=== PATIENT | female | born 1950 | race Caucasian/White ===

== ENCOUNTER 2017-04-09 15:25 | Emergency (ER) | payer BC ==
[2015-08-09 11:08] VITALS: BMI 33.9
[~2017-04-09 15:25] MED LIST: ADVAIR 500/501 DISK INH; AFRIN NASAL SPR15 ML NASAL; IPRAT-ALBUT 0.5-3 ML UPD; LEVAQUIN PREMI750 MG PO; LEVAQUIN500 MG PO; MEDROL DOSE PACK4 MG PO; NORCO 10/325 TA1 TA1 PO; ULTRAM50 MG PO; VALIUM5 MG PO; VENTOLIN HFA18 GM INH
[2017-04-09 16:18] LABS: HEMATOCRIT 42.9 % (36.0-48.0); HEMOGLOBIN 14.2 g/dL (12-16); LYMPHOCYTES 12.8 % (15-50); MCH 28.7 pg (26.0-34.0); MCHC 33.1 g/dL (31.0-37.0); MCV 86.8 fL (80.0-100.0); MEAN PLATELET VOLUME 8.2 fL (7.4-10.4); PLATELET COUNT 304 10x3/uL (130-400); RBC 4.94 10x6/uL (4.00-5.40); RDW 12.7 % (11.5-14.5); WBC 10.6 10x3/uL (4.8-10.8)
[2017-04-09 16:31] LABS: ALBUMIN 3.8 g/dL (3.4-5.0); ALKALINE PHOSPHATASE 57 U/L (46-116); ALT (SGPT) 22 U/L (10-68); CALC OSMOLALITY 274 mosm/kg (275-300); CALCIUM 9.1 mg/dL (8.5-10.1); CARBON DIOXIDE 23.8 mmol/L (21.0-32.0); CHLORIDE - SERUM 101 mmol/L (98-107); CREATININE - SERUM 0.8 mg/dL (0.6-1.3); GLUCOSE 126 mg/dL (74-106); POTASSIUM - SERUM 3.7 mmol/L (3.5-5.1); SODIUM 137 mmol/L (136-145); UREA NITROGEN 11 mg/dL (7-18); eGFR NON AFRICAN AMERICAN 75 mL/min (90-120)
== END 2017-04-09 18:49 | disposition left against medical advice (07) ==
LOC: D.ER 15:25
PROVIDERS: Emergency Medicine
DX: R06.02 Shortness of breath (principal); J44.9 Chronic obstructive pulmonary disease, unspecified

== ENCOUNTER → 2018-07-01 12:46 | Outpatient (CLI) | payer BC ==
[2015-08-09 11:08] VITALS: BMI 33.9
[2018-07-04 14:12] LABS: IMMUNOGLOBULIN E 675 IU/mL (0-100)
== END | disposition home or self-care (01) ==
LOC: D.RT 12:46
PROVIDERS: Internal Medicine Pulmonary Disease
DX: J20.9 Acute bronchitis, unspecified (principal); J44.1 Chronic obstructive pulmonary disease with (acute) exacerbation

== ENCOUNTER → 2019-06-23 11:16 | Outpatient (CLI) | payer BC ==
[2015-08-09 11:08] VITALS: BMI 33.9
== END | disposition home or self-care (01) ==
LOC: D.RAD 11:16
PROVIDERS: ATTEND Internal Medicine Pulmonary Disease
DX: J45.909 Unspecified asthma, uncomplicated (principal)

== ENCOUNTER → 2019-06-24 12:44 | Outpatient (CLI) | payer BC ==
[2015-08-09 11:08] VITALS: BMI 33.9
== END | disposition home or self-care (01) ==
LOC: D.RT 06-22 09:00
PROVIDERS: ATTEND Internal Medicine Pulmonary Disease
DX: J45.909 Unspecified asthma, uncomplicated (principal)

== ENCOUNTER 2020-05-21 09:54 | Inpatient (IN) | payer BC, MEDICARE ==
[~2020-05-21] VITALS: Ht 162.6 cm; Wt 77.1 kg
[2020-05-21] MEDS ORDERED: TESSALON PERLE100 MG PO (10:00)
[2020-05-21] MEDS ORDERED: LISINOPRIL10 MG PO (10:00)
[2020-05-21] MEDS ORDERED: HYDROCODON-ACE1 EA10 (10:00)
[2020-05-21] MEDS ORDERED: SINGULAIR10 MG PO (10:00)
[2020-05-21] MEDS ORDERED: TRELEGY ELLIPT1 EACH (10:01)
[2020-05-21 10:21] LABS: BASOPHILS 0.1 % (0-2); EOSINOPHILS 5.4 % (0-7); HEMATOCRIT 43.2 % (36.0-48.0); IMMATURE GRANULOCYTES 0.1 % (0-5); LYMPHOCYTES 22.8 % (15-50); MCH 29.7 pg (26.0-34.0); MCHC 32.4 g/dL (31.0-37.0); MCV 91.7 fL (80.0-100.0); MEAN PLATELET VOLUME 8.9 fL (7.4-10.4); MONOCYTES 5.3 % (2-11); NEUTROPHILS 66.3 % (40-80); RBC 4.71 10x6/uL (4.00-5.40); RDW 12.9 % (11.5-14.5); WBC 8.3 10x3/uL (4.8-10.8)
[2020-05-21 10:22] LABS: PLATELET COUNT 235 10x3/uL (130-400)
[2020-05-21 10:30] LABS: CALC OSMOLALITY 277 mosm/kg (275-300); CALCIUM 9.4 mg/dL (8.5-10.1); CARBON DIOXIDE 30.1 mmol/L (21.0-32.0); CHLORIDE - SERUM 102 mmol/L (98-107); CREATININE - SERUM 0.8 mg/dL (0.6-1.3); GLUCOSE 132 mg/dL (74-106); POTASSIUM - SERUM 3.9 mmol/L (3.5-5.1); SODIUM 138 mmol/L (136-145); UREA NITROGEN 12 mg/dL (7-18); eGFR NON AFRICAN AMERICAN 75 mL/min (90-120)
[2020-05-21 10:36] LABS: ALBUMIN 3.8 g/dL (3.4-5.0); ALKALINE PHOSPHATASE 69 U/L (30-120); ALT (SGPT) 28 U/L (10-68); BILIRUBIN - TOTAL 0.34 mg/dL (0.2-1.3); PROTEIN - SERUM 8.5 g/dL (6.4-8.2)
[2020-05-21 10:39] LABS: LIPASE 27 U/L (73-393)
[2020-05-21 11:31] LABS: BILIRUBIN NEGATIVE (NEGATIVE); KETONE NEGATIVE (NEGATIVE); NITRITE NEGATIVE (NEGATIVE); UROBILINOGEN NORMAL (NORMAL)
[2020-05-21 11:33] LABS: BACTERIA FEW /hpf (NONE SEEN); EPITHELIAL CELLS 0-5 /hpf (0-5); WHITE CELLS - URINE 0-5 /hpf (0-5)
[2020-05-21 11:45] LABS: CKMB 1.8 U/L (0.0-3.6); CREATINE KINASE 86 UL (21-215)
[2020-05-21 11:46] LABS: TROPONIN-I < 0.017 ng/mL (0.000-0.060)
[2020-05-21 14:08] VITALS: BP 152/80
--- NOTE | 2020-05-21 16:30 | NUR ---
TO ROOM 2220 FROM ER VIA WHEELCHAIR. PATIENT IS WITHOUT DISTRESS.ORIENTATION TO ROOM.CALL LIGHT IN REACH.
[2020-05-21 16:50] VITALS: BP 105/87; BMI 29.2
--- NOTE | 2020-05-21 19:01 | NUR ---
RECEIVED REPORT, ASSUMED CARE, C/O PAIN, BREATHING EVEN UNLABRORED, CALL LIGHT IN REACH, BED LOWEST POSITION, NO S/S OF DISTRESS NOTED, IV PATENT, DR PRITCHETT PAGED CONCERNING PAIN MEDICATION, ORDERED MORPHINE DRYING UNIT FELTING MACHINE OPERATOR
[2020-05-21 23:19] VITALS: BP 153/89
[2020-05-22 03:24] VITALS: BP 136/62
[2020-05-22 06:24] LABS: BASOPHILS 0.2 % (0-2); EOSINOPHILS 4.3 % (0-7); HEMATOCRIT 37.1 % (36.0-48.0); HEMOGLOBIN 11.9 g/dL (12-16); LYMPHOCYTES 32.9 % (15-50); MCH 29.1 pg (26.0-34.0); MCHC 32.1 g/dL (31.0-37.0); MCV 90.7 fL (80.0-100.0); MEAN PLATELET VOLUME 9.2 fL (7.4-10.4); MONOCYTES 6.6 % (2-11); PLATELET COUNT 204 10x3/uL (130-400); RBC 4.09 10x6/uL (4.00-5.40); RDW 12.6 % (11.5-14.5)
[2020-05-22 06:29] LABS: WBC 5.6 10x3/uL (4.8-10.8)
[2020-05-22 06:40] VITALS: BP 141/79
[2020-05-22 06:50] LABS: ALKALINE PHOSPHATASE 53 U/L (30-120); AMYLASE - SERUM 16 U/L (25-115); BILIRUBIN - TOTAL 0.12 mg/dL (0.2-1.3); CARBON DIOXIDE 27.4 mmol/L (21.0-32.0); CHLORIDE - SERUM 106 mmol/L (98-107); CREATININE - SERUM 0.7 mg/dL (0.6-1.3); GLUCOSE 89 mg/dL (74-106); POTASSIUM - SERUM 3.6 mmol/L (3.5-5.1); PROTEIN - SERUM 6.8 g/dL (6.4-8.2); SODIUM 140 mmol/L (136-145); eGFR NON AFRICAN AMERICAN 87 mL/min (90-120)
[2020-05-22 07:07] LABS: ALT (SGPT) 19 U/L (10-68); CALC OSMOLALITY 275 mosm/kg (275-300); LIPASE 16 U/L (73-393); UREA NITROGEN 6 mg/dL (7-18)
--- NOTE | 2020-05-22 08:00 | NUR ---
PATIENT IN BED WITH NO COMPLAINTS OR SIGNS OF DISTRESS. IV INTACT. WAITING FOR PHYSICIAN TO ROUND. WANTS CLEAR LIQUIDS. TOURIST INFORMATION ASSISTANT INTACT. WILL CONTINUE TO MONITOR.
[2020-05-22 09:27] VITALS: BP 138/60
[2020-05-22 09:47] VITALS: BMI 29.2
[2020-05-22 13:50] VITALS: Ht 162.6 cm; Wt 77.1 kg
--- NOTE | 2020-05-22 14:30 | NUR ---
CHANGED PATIENTS IV TO RIGHT WRIST. LEFT AC RED, AND ITCHING. REMOVED WITH CATH TIP INTACT.
--- NOTE | 2020-05-22 16:16 | NUR ---
PATIENT SITTING UP IN BED WITH IV INTACT. FAMILY AT BEDSIDE. CALL LIGHT WITHIN REACH.
[2020-05-22 17:48] VITALS: BP 130/68
[2020-05-22 20:00] VITALS: BP 115/53
--- NOTE | 2020-05-22 20:00 | NUR ---
PT SITTING UP ON SIDE OF BED, AOX4 AND WITHOUT DISTRESS. IV RIGHT WRIST INFUSING NS @ 125. STATES NO NAUSEA AT THIS TIME, WAS ABLE TO EAT SOME JELLO. STATES PAIN IN ABD 5/10 AT THIS TIME. STATES MOTION PICTURE PROJECTIONIST APPRENTICE HELPS. DENIES NEEDS AT THIS TIME. CL IN REACH, WILL CTM
[2020-05-23] VITALS: BP 114/47
--- NOTE | 2020-05-23 01:15 | NUR ---
PT LYING IN BED RESTING WITHOUT DISTRESS, DENIES NEEDS. WILL CTM
[2020-05-23 04:00] VITALS: BP 125/47
[2020-05-23 08:55] VITALS: BP 143/75
[2020-05-23 13:19] VITALS: BP 124/52
[2020-05-23 17:06] VITALS: BP 150/69
[2020-05-23 20:00] VITALS: BP 130/61
--- NOTE | 2020-05-23 20:00 | NUR ---
PT SITTING UP IN BED WITHOUT DISTRESS, AOX4. STATES SHE HAS BEEN NAUSEOUS AND HAS NOT ATE MUCH TODAY. IV RIGHT WRIST INFUSING NS @ 125 AND USING MORPHINE PIANO CASE MAKER. PT DENIES NEEDS AT THIS TIME. CL IN REACH, WILL CTM
--- NOTE | 2020-05-23 22:00 | NUR ---
PT MAKING LAPS AROUND NURSES STATION AT THIS TIME
[2020-05-24] VITALS: BP 143/63
[2020-05-24 04:00] VITALS: BP 154/59
[2020-05-24 06:45] LABS: BASOPHILS 0.2 % (0-2); HEMATOCRIT 36.4 % (36.0-48.0); HEMOGLOBIN 12.2 g/dL (12-16); IMMATURE GRANULOCYTES 0.3 % (0-5); LYMPHOCYTES 35.3 % (15-50); MCHC 33.5 g/dL (31.0-37.0); MCV 89.4 fL (80.0-100.0); MEAN PLATELET VOLUME 9.8 fL (7.4-10.4); NEUTROPHILS 56.2 % (40-80); PLATELET COUNT 215 10x3/uL (130-400); RBC 4.07 10x6/uL (4.00-5.40); RDW 12.5 % (11.5-14.5); WBC 6.2 10x3/uL (4.8-10.8)
[2020-05-24 06:59] LABS: ALBUMIN 2.8 g/dL (3.4-5.0); ALKALINE PHOSPHATASE 51 U/L (30-120); ALT (SGPT) 23 U/L (10-68); BILIRUBIN - TOTAL 0.14 mg/dL (0.2-1.3); CALC OSMOLALITY 274 mosm/kg (275-300); CALCIUM 8.3 mg/dL (8.5-10.1); CARBON DIOXIDE 26.7 mmol/L (21.0-32.0); CHLORIDE - SERUM 104 mmol/L (98-107); CREATININE - SERUM 0.6 mg/dL (0.6-1.3); GLUCOSE 75 mg/dL (74-106); POTASSIUM - SERUM 3.3 mmol/L (3.5-5.1); SODIUM 140 mmol/L (136-145); eGFR NON AFRICAN AMERICAN > 90 mL/min (90-120)
[2020-05-24 07:01] LABS: AMYLASE - SERUM 11 U/L (25-115); LIPASE 11 U/L (73-393); UREA NITROGEN 4 mg/dL (7-18)
--- NOTE | 2020-05-24 08:11 | NUR ---
PT RESTING QUIETLY IN BED WITH EYES CLOSED. AWAKENS SPONTANEOUSLY. RESP EVEN AND UNLABORED. REPORTS PAIN 3/10 AT THIS TIME. IV TO RIGHT WRIST WITH NS @ 125ML/HR, MORPHINE LINUX UNIX ADMINISTRATOR, BOTH INFUSING VIA PUMP. SITE WITHOUT REDNESS OR EDEMA. DENIES FURTHER NEEDS AT THIS TIME. CL WITHIN REACH. ENCOURAGED TO CALL WITH NEEDS. CONTINUE POC
[2020-05-24 09:18] VITALS: BP 136/50
[2020-05-24 12:27] VITALS: BP 129/55
--- NOTE | 2020-05-24 14:29 | NUR ---
Nutrition follow-up: Pt continues with clear liquid diet 2/2 nausea, vomiting; reports she cannot hold anything down at this time Pt walking in [place] Reglan started today Labs reviewed Wt: 170# Recommend starting ProcalAmine PPN @ 100 ml/hr due to pt not meeting estimated energy needs at this time RDN following.
[2020-05-24 18:01] VITALS: BP 162/67
[2020-05-24 20:00] VITALS: BP 139/65
--- NOTE | 2020-05-24 20:00 | NUR ---
PT SITTING UP IN BED WITHOUT DISTRESS, AOX4. IV RIGHT WRIST INFUSING NS @ 125, MORPHINE SAUSAGE CUTTER IN USE. REQUESTED AND PROVIDED ICE CHIPS. STATES SHE HAS NOT HAD MUCH NAUSEA SINCE STARTING REGLAN AND HAS BEEN ABLE TO TOLERATE CLEAR LIQUID DIET MORE. DENIES OTHER NEEDS AT THIS TIME. CL IN REACH, WILL CTM
[2020-05-25] VITALS (7 sets, daily range): BP systolic 140–160; BP diastolic 52–74
[2020-05-25 05:11] LABS: IGG SUBCLASS 1 358 mg/dL (248-810); IGG SUBCLASS 2 154 mg/dL (130-555); IGG SUBCLASS 3 198 mg/dL (15-102); IGG SUBCLASS 4 488 mg/dL (2-96); IGGS - IGG SERUM 1216 mg/dL (586-1602)
--- NOTE | 2020-05-25 07:05 | NUR ---
RESTING IN BED WITH EYES CLOSED. RESPIRATIONS EVEN AND UNLABORED. NO S/S OF ACUTE DISTRESS NOTED. ON 2L O2, NC PRN. IV TO RIGHT WRIST, NS INFUSING @ 125ML/HR. SITE PATENT WITHOUT REDNESS OR SWELLING. CALL LIGHT IN REACH. WILL CONTINUE TO MONITOR.
--- NOTE | 2020-05-25 10:55 | NUR ---
I have reviewed this patient and I concur with the Shift Assessment completed by the Licensed Practical Nurse today this shift.
--- NOTE | 2020-05-25 18:25 | NUR ---
A&O RESTING IN BED WITH EYES OPEN. NO C/O PAIN. NO S/S OF ACUTE DISTRESS NOTED. DENIES ANY NEEDS AT THIS TIME. CALL LIGHT IN REACH. WILL CONTINUE TO MONITOR.
--- NOTE | 2020-05-25 20:00 | NUR ---
PT SITTING UP IN BED WITHOUT DISTRESS, AOX4. IV RIGHT WRIST INFUSING NS @ 125, MORPHINE MANAGER LAW IN USE. PT STATES NO PAIN AT THIS TIME. STATES NO N/V TODAY. O2 2L/NC. DENIES NEEDS AT THIS TIME. CL IN REACH, WILL CTM
[2020-05-26 04:00] VITALS: BP 149/58
--- NOTE | 2020-05-26 07:15 | NUR ---
RECEIVED BEDSIDE REPORT. PT SITTING UP IN BED, A&O X4. DENIES PAIN. PIV IN RIGHT WRIST, PATENT AND INFUSING, NO REDNESS OR SWELLING. O2 VIA NC AT 2L. PT ABLE TO AMBULATE WITH NO ASSIST. PT DENIES N/V FOR PAST 24 HRS. EDUCATED PT ON CL AND NEEDS, VERBALIZED UNDERSTANDING. BED LOW, RAILS X2. CL IN REACH. WILL CONTINUE TO MONITOR.
--- NOTE | 2020-05-26 07:45 | NUR ---
PT ABLE TO TOLERATE SOLID FOODS, VIA EXPORT SALES MANAGER RN. ORDERED BREAKFAST TRAY.
[2020-05-26 09:07] VITALS: BP 166/76
[2020-05-26 11:50] LABS: ERYTHROCYTE SEDIMENTATION RATE 15 mm/hr (0-30)
[2020-05-26 12:31] VITALS: BP 177/73
[2020-05-26 17:31] VITALS: BP 193/90
--- NOTE | 2020-05-26 19:00 | NUR ---
BEDSIDE REPORT RECEIVED AND CARE OF PT ASSUMED. PT LYING IN HIGH PARRA'S POSITION VISITING WITH FAMILY MEMBER. IV TO RIGHT WRIST PATENT WITH NS INFUSING AT 125 ML/HR. WILL MONITOR FOR NEEDS.
--- NOTE | 2020-05-26 19:39 | NUR ---
HS MEDICATIONS GIVEN. PT TOOK OWN SINGULAIR. RE-STARTED MORPHINE OPERATIONS WELDER PER PT REQUEST.
[2020-05-26 20:00] VITALS: BP 193/87
[2020-05-27] VITALS: BP 175/88
[2020-05-27 04:00] VITALS: BP 118/65
[2020-05-27 06:11] LABS: HEPATITIS C ANTIBODY <0.1 S/CO RAT (0.0-0.9)
--- NOTE | 2020-05-27 07:43 | NUR ---
ALERT AND ORIENTED. LUNGS CLEAR BILATERALLY. HEART SOUNDS S1 AND S2 HEARD IN ALL [place]. BOWEL SOUNDS ACTIVE X 4. IV TO RIGHT WRIST PATENT WITHOUT REDNESS. DENIES NEEDS. BED LOW. CALL RASMUSSEN AND PERSONAL ITEMS IN REACH. WILL CONTINUE TO MONITOR.
--- NOTE | 2020-05-27 09:25 | NUR ---
GOLD LEAF ROLLER DC PER ORDER. EDUCATION PROVIDED ON NEW ORDER FOR TRAMADOL. PATIENT DENIES QUESTIONS AND STATES DOES NOT NEED AT THIS TIME. WILL CONTINUE TO MONITOR.
[2020-05-27 09:50] VITALS: BP 155/84
[2020-05-27 09:54] VITALS: BP 155/84
[2020-05-27] MEDS ORDERED: PREDNISONE10 MG PO (11:32)
[2020-05-27] MEDS ORDERED: OXYCODONE HCL10 MG PO (11:33)
--- NOTE | 2020-05-27 12:16 | NUR ---
SITTING IN BED EATING LUNCH. DENIES NEEDS. WILL CONTINUE TO MONITOR.
[2020-05-27 12:43] VITALS: BP 178/83
--- NOTE | 2020-05-27 13:12 | NUR ---
DC EDUCATION PROVIDED BOTH WRITTEN AND VERBAL. VERBALIZED UNDERSTANDING. DENIES FURTHER QUESTIONS. IV REMOVED FROM RIGHT WRIST WITH TIP INTACT. RX FOR PRN PAIN MEDICATION PROVIDED BY MD. DENIES FURTHER NEEDS. PATIENT DC HOME WITH ALL BELONGINGS.
[2020-05-29 10:09] LABS: ANA REFLEX - DIRECT Negative (Negative)
[2020-05-29 15:12] LABS: SPE - A/G RATIO 1.1 (0.7-1.7); SPE - ALBUMIN 3.4 g/dL (2.9-4.4); SPE - ALPHA-1 GLOBULIN 0.2 g/dL (0.0-0.4); SPE - ALPHA-2 GLOBULIN 0.8 g/dL (0.4-1.0); SPE - BETA GLOBULIN 0.8 g/dL (0.7-1.3); SPE - GAMMA GLOBULIN 1.3 g/dL (0.4-1.8); SPE - M-SPIKE Not Observed g/dL (Not Observed); SPE - TOTAL PROTEIN 6.5 g/dL (6.0-8.5)
== END 2020-05-27 13:34 | disposition home or self-care (01) | DRG 439 ==
LOC: D.ER 09:54 → D.MS 14:34 → D.EDHOLD 14:34 → D.MS 15:00
PROVIDERS: Family Medicine; Surgery; ADMIT Family Medicine; ATTEND Family Medicine
DX: K85.90 Acute pancreatitis without necrosis or infection, unspecified (principal); N39.0 Urinary tract infection, site not specified; K80.20 Calculus of gallbladder without cholecystitis without obstruction; R68.81 Early satiety; J44.9 Chronic obstructive pulmonary disease, unspecified; Z87.891 Personal history of nicotine dependence

== ENCOUNTER 2021-03-03 15:44 | Inpatient (IN) | payer BC, MEDICARE ==
[~2021-03-03] VITALS: Ht 162.6 cm; Wt 63.6 kg
[~2021-03-03 15:44] MED LIST changes: +HYDROCODON-ACE1 EA10; +LISINOPRIL10 MG PO; +OXYCODONE HCL10 MG PO; +PREDNISONE10 MG PO; +SINGULAIR10 MG PO; +TESSALON PERLE100 MG PO; +TRELEGY ELLIPT1 EACH INH
[2021-03-03] MEDS ORDERED: STERAPRED DS 1010 MG PO (16:01)
--- NOTE | 2021-03-03 16:03 | NUR ---
FSBS= 535 MG/DL
[2021-03-03] MEDS ORDERED: GABAPENTIN100 MG PO (16:04)
[2021-03-03 16:42] LABS: CREATININE - SERUM 1.4 mg/dL (0.6-1.3); MAGNESIUM - SERUM 2.3 mg/dL (1.8-2.4); POTASSIUM - SERUM 4.8 mmol/L (3.5-5.1)
[2021-03-03 16:43] LABS: CALCIUM 9.8 mg/dL (8.5-10.1); CARBON DIOXIDE 27.8 mmol/L (21.0-32.0)
[2021-03-03 16:44] LABS: ALBUMIN 3.7 g/dL (3.4-5.0); BILIRUBIN - TOTAL 0.53 mg/dL (0.2-1.3); PROTEIN - SERUM 7.5 g/dL (6.4-8.2)
[2021-03-03 16:46] LABS: THYROID STIMULATING HORMONE 0.55 uIU/mL (0.36-3.74)
[2021-03-03 16:50] LABS: BILIRUBIN NEGATIVE (NEGATIVE); KETONE NEGATIVE (NEGATIVE); NITRITE NEGATIVE (NEGATIVE); UROBILINOGEN NORMAL mg/dL (< 2)
[2021-03-03 18:04] LABS: BASOPHILS 0.3 % (0-2); EOSINOPHILS 0 % (0-7); HEMATOCRIT 41.7 % (36.0-48.0); HEMOGLOBIN 14.1 g/dL (12-16); LYMPHOCYTES 10.3 % (15-50); MCH 30.5 pg (26.0-34.0); MCHC 33.8 g/dL (31.0-37.0); MCV 90.4 fL (80.0-100.0); MEAN PLATELET VOLUME 7.1 fL (7.4-10.4); MONOCYTES 2.2 % (2-11); NEUTROPHILS 87.2 % (40-80); RBC 4.61 10x6/uL (4.00-5.40); RDW 13.3 % (11.5-14.5)
[2021-03-03 18:07] LABS: PLATELET COUNT 398 10x3/uL (130-400)
[2021-03-03 18:16] LABS: BILIRUBIN NEGATIVE (NEGATIVE); KETONE NEGATIVE mg/dL (< 1+); NITRITE NEGATIVE (NEGATIVE); SQUAMOUS EPITHELIAL <1 HPF (0-4); UROBILINOGEN NORMAL mg/dL (< 2); WHITE CELLS - URINE <1 HPF (0-4)
[2021-03-03] MEDS ORDERED: HYDROCODON-ACE1 EA10 PO (23:26)
[2021-03-04 00:16] VITALS: BP 133/75; BMI 24.0
[2021-03-04 05:57] LABS: ANION GAP 8.5 mmol/L (8-16); CALCIUM 8.7 mg/dL (8.5-10.1); CARBON DIOXIDE 29.5 mmol/L (21.0-32.0)
[2021-03-04 06:01] LABS: CREATININE - SERUM 0.8 mg/dL (0.6-1.3)
[2021-03-04 06:05] LABS: BASOPHILS 0.3 % (0-2); EOSINOPHILS 0.6 % (0-7); HEMATOCRIT 36.9 % (36.0-48.0); HEMOGLOBIN 12.2 g/dL (12-16); MCH 29.6 pg (26.0-34.0); MCV 89.7 fL (80.0-100.0); MONOCYTES 6.1 % (2-11); RBC 4.11 10x6/uL (4.00-5.40); RDW 13.4 % (11.5-14.5); WBC 11.9 10x3/uL (4.8-10.8)
[2021-03-04 06:24] LABS: PLATELET COUNT 287 10x3/uL (130-400)
[2021-03-04 08:50] VITALS: BP 134/75
--- NOTE | 2021-03-04 09:22 | NUR ---
AAOX4 UPON ENTERING. HUNG FLUIDS. RESTING COMFORTABLY. DENIES ANY NEEDS AT THIS TIME. BED IN LOWEST POSITION, BED RAILS X2, CALL LIGHT WITHIN REACH. WILL CONTINUE POC. ASSESSMENT PERFORMED
[2021-03-04 09:55] VITALS: Ht 162.6 cm; Wt 63.6 kg
[2021-03-04 12:56] VITALS: BP 115/59
--- NOTE | 2021-03-04 13:33 | NUR ---
EDUCATION GIVEN ON INSULIN ADMINISTERED AND GLUCOSE CHECKS. DENIES ANY NEEDS OR FURTHER QUESTIONS AT THIS TIME. WILL CONTACT DR. GALINDO ABOUT DISCHARGE ORDERS. REQUESTED TO HAVE IV REMOVED. REMOVED FROM RIGHT AC, CATHETER TIP INTACT, COVERED WITH GAUZE AND TAPE. TOLERATED WELL.
[2021-03-04] MEDS ORDERED: GLUTOSE 1537.5 GM PO (13:57)
[2021-03-04] MEDS ORDERED: HUMALOG 30100 UNITS/ SC (14:00)
--- NOTE | 2021-03-04 15:13 | NUR ---
SIGNED ALL NECESSARY DISCHARGE PAPERWORK AT THIS TIME. IV HAS ALREADY BEEN REMOVED. CONTINUED EDUCATION ON DIABETES, INSULIN AND GLUCOSE CHECKS. DENIES FURTHER NEEDS FROM HOSPTIAL/STAFF AT THIS TIME. ESCORTED SELF OUT, DENIED NEEDING A WHEELCHAIR.
--- NOTE | 2021-03-04 16:48 | MORECARE ---
CASE MANAGEMENT DISCHARGE SUMMARY PATIENT: PORFIRIO MCKEON UNIT: [id number] ADM DATE: 03/03/21 AGE: 70 : 48 SEX: F ROOM/BED: [facility] AUTHOR: DANII,DOC PHYSICIAN: REFERRING PHYSICIAN: JERRY GALINDO MD DATE OF SERVICE: 03/04/21 Case Management Discharge Planning Summary DCP REVIEW SUMMARY ANTICIPATED D/C DATE: 03/04/2021 EXPECTED LOS : 1 CASE STATUS: DCP Initiated INITIAL REVIEW: 03/03/2021 INITIAL REVIEWER: Bo Toro FINAL DISCHARGE DISPOSITION: : FINAL REVIEWER: FINAL REVIEW DATE: DCP Focus Questions & Answers QUESTION: ANSWER : PATIENT: PORFIRIO MCKEON ENCOUNTER: [id number] MEDICAL RECORD#: [id number] ADMISSION DATE: 03/03/2021 DISCHARGE DATE: 03/04/2021 ATTENDING MD: JERRY JEAN : AGE: 70 MARITAL STATUS: S DC PLAN ID: [id number] FACILITY: [facility] PRINTED ON: 03/04/21 16:48 CT All edits/amendments must be made on the electronic document DICTATION DATE: 03/04/211647 LONG CHAIN QUILLER TENDER: NATHAN 03/04/211647 RPT#: [id number] DC DATE:03/04/21 STATUS: DIS IN [facility] [address] [place] [address] END OF REPORT
--- NOTE | 2021-03-04 16:59 | MORECARE ---
CASE MANAGEMENT DISCHARGE SUMMARY PATIENT: PORFIRIO MCKOEN UNIT: [id number] ADM DATE: 03/03/21 AGE: 70 : 48 SEX: F ROOM/BED: D.2215 AUTHOR: DANII,DOC PHYSICIAN: REFERRING PHYSICIAN: JERRY GALINDO MD DATE OF SERVICE: 03/04/21 Case Management Discharge Planning Summary COMMENTS ENTERED DATE: 03/04/21 16:49 CT COMMENT TYPE: Discharge Planning REVIEWER: Bo Toro CM met with patient to complete DC plan and to evaluate needs. Patient lives independently. Patient stated that her home is safe and has electricity and running water. Patient stated that she has no problems paying for medications and she fills her medications at [facility] on . Patient stated that her primary care physician is Dr. Buchanan. At discharge, the patient plans to return place and feels this is a safe discharge. CM discussed availability of home health, rehab services, and medical equipment. Patient declined HHS, SNF, IPR, and DME. Patient voiced no other needs at this time and is satisfied with DC plan. CM will continue to follow and will assist as needed with dc plans/needs. DCP REVIEW SUMMARY ANTICIPATED D/C DATE: 03/04/2021 EXPECTED LOS : 1 CASE STATUS: DCP Initiated INITIAL REVIEW: 03/03/2021 INITIAL REVIEWER: Bo Toro FINAL DISCHARGE DISPOSITION: : FINAL REVIEWER: FINAL REVIEW DATE: DCP Focus Questions & Answers QUESTION: ANSWER : PATIENT: PORFIRIO MCKEON ENCOUNTER: [id number] MEDICAL RECORD#: [id number] ADMISSION DATE: 03/03/2021 DISCHARGE DATE: 03/04/2021 ATTENDING MD: JERRY JEAN : AGE: 70 MARITAL STATUS: S DC PLAN ID: [id number] FACILITY: [facility] PRINTED ON: 03/04/21 16:58 CT All edits/amendments must be made on the electronic document DICTATION DATE: 03/04/211657 LABORER DRIVER: NATHAN 03/04/211657 RPT#: [id number] DC DATE:03/04/21 STATUS: DIS IN [facility] [address] [place] [address] END OF REPORT
--- NOTE | 2021-03-05 19:49 | MORECARE ---
CASE MANAGEMENT DISCHARGE SUMMARY PATIENT: PORFIRIO MCKEON UNIT: [id number] ADM DATE: 03/03/21 AGE: 70 : 48 SEX: F ROOM/BED: D.2215 AUTHOR: DANIIDOC PHYSICIAN: REFERRING PHYSICIAN: JERRY GALINDO MD DATE OF SERVICE: 03/05/21 Case Management Discharge Planning Summary COMMENTS ENTERED DATE: 03/04/21 16:49 CT COMMENT TYPE: Discharge Planning REVIEWER: Bo Toro CM met with patient to complete DC plan and to evaluate needs. Patient lives independently. Patient stated that her home is safe and has electricity and running water. Patient stated that she has no problems paying for medications and she fills her medications at [facility] on . Patient stated that her primary care physician is Dr. Buchanan. At discharge, the patient plans to return place and feels this is a safe discharge. CM discussed availability of home health, rehab services, and medical equipment. Patient declined HHS, SNF, IPR, and DME. Patient voiced no other needs at this time and is satisfied with DC plan. CM will continue to follow and will assist as needed with dc plans/needs. DCP REVIEW SUMMARY ANTICIPATED D/C DATE: 03/04/2021 EXPECTED LOS : 1 CASE STATUS: DCP Complete INITIAL REVIEW: 03/03/2021 INITIAL REVIEWER: Bo Toro FINAL DISCHARGE DISPOSITION: : FINAL REVIEWER: Enid Schuler FINAL REVIEW DATE: DCP Focus Questions & Answers QUESTION: ANSWER : PATIENT: PORFIRIO MCKEON ENCOUNTER: [id number] MEDICAL RECORD#: [id number] ADMISSION DATE: 03/03/2021 DISCHARGE DATE: 03/04/2021 ATTENDING MD: JERRY JEAN : AGE: 70 MARITAL STATUS: S DC PLAN ID: [id number] FACILITY: [facility] PRINTED ON: 03/05/21 19:49 CT All edits/amendments must be made on the electronic document DICTATION DATE: 03/05/211948 MEDICAID SPECIALIST: NATHAN 03/05/211948 RPT#: [id number] DC DATE:03/04/21 STATUS: DIS IN [place] [id number] [place] [address] END OF REPORT
== END 2021-03-04 15:14 | disposition home or self-care (01) | DRG 638 ==
LOC: D.ER 15:44 → D.EDHOLD 21:40 → D.MS 21:53
PROVIDERS: Family Medicine; ADMIT Family Medicine; ATTEND Family Medicine
DX: E11.65 Type 2 diabetes mellitus with hyperglycemia (principal); K86.1 Other chronic pancreatitis; R63.1 Polydipsia; E86.0 Dehydration; J44.9 Chronic obstructive pulmonary disease, unspecified